=== PATIENT | female | born 1960 | race Caucasian/White ===

== ENCOUNTER 2020-05-23 15:55 | Emergency (ER) | payer MEDICARE, OTHER ==
[~2020-05-23] VITALS: Ht 175 cm; Wt 91.0 kg
[2020-05-23 15:59] VITALS: BP 150/93
--- NOTE | 2020-05-23 16:22 | ED Upper Extremity ---
General Chief Complaint: Upper Extremity Stated Complaint: R HAND FINGER INJ / SWELLING Nursing Triage Note: PT STATES SMASHED 2,3 FINGERS ON L HAND IN CAR DOOR APPROX 15MIN AGO Nursing Sepsis Screen: No Definite Risk Source: patient Exam Limitations: no limitations History of Present Illness Date Seen by Provider: May 23, 2020 Time Seen by Provider: 16:17 Initial Comments Reports of right pointer and middle finger pain after it was shut in a car door. Her daughter is being seen for hand laceration. Patient states she thought perhaps she could get a shot of aspirin in the arm. Onset: just prior to arrival Severity: moderate Pain/Injury Location: right 2nd finger, right 3rd finger Method of Injury: unknown Modifying Factors: Improves With Movement Allergies and Home Medications Allergies Coded Allergies: No Known Drug Allergies (Unverified , 05/23/20) Patient Home Medication List Home Medication List Reviewed: Yes Review of Systems Constitutional: see HPI EENTM: see HPI Respiratory: no symptoms reported Cardiovascular: no symptoms reported Genitourinary: no symptoms reported Musculoskeletal: see HPI Skin: no symptoms reported Psychiatric/Neurological: No Symptoms Reported Past Trekdwn-[id number]-[id number] Hx Patient Social History Alcohol Use: Denies Use Smoking Status: Current Everyday Smoker Type Used: Cigarettes Recent Infectious Disease Expo: No Recent Hopitalizations: No Immunizations Up To Date Tetanus Booster (TDap): Unknown Seasonal Allergies Seasonal Allergies: No Past Medical History Respiratory: No Cardiac: No Neurological: No : No Genitourinary: No Gastrointestinal: No Musculoskeletal: No Endocrine: No HEENT: No Cancer: No Psychosocial: No Integumentary: No Blood Disorders: No Physical Exam Vital Signs Vital Signs - First Documented 05/23/20 15:59 Temp 37.3 Pulse 91 Resp 20 B/P (MAP) 150/93 (112) Pulse Ox 95 Capillary Refill : Less Than 3 Seconds Height, Weight, BMI Height: '" Weight: lbs. oz. kg; 29.00 BMI Method: General Appearance: WD/WN, no apparent distress Neck: non-tender, full range of motion Respiratory: no respiratory distress, no accessory muscle use Elbow/Forearm: normal inspection, non-tender Wrist: Yes normal inspection, Yes non-tender Hand: normal inspection, soft tissue tenderness (Pointer and middle finger are normal in appearance) Neurologic/Tendon: normal sensation, normal motor functions Neurologic/Psychiatric: alert, normal mood/affect, oriented x 3 Skin: normal color, warm/dry Progress/Results/Core Measures Results/Orders My Orders Orders - EUSEBIA MÉNDEZ APRN Hand, Right, 3 Views (05/23/20 16:17) Ibuprofen Tablet (Motrin Tablet) (05/23/20 16:30) Vital Signs/I&O 05/23/20 15:59 Temp 37.3 Pulse 91 Resp 20 B/P (MAP) 150/93 (112) Pulse Ox 95 Blood Pressure Mean: 112 Departure Impression Primary Impression: Finger contusion Disposition: 01 HOME, SELF-CARE Condition: Stable Departure-Patient Inst. Decision time for Depature: 16:20 Patient Instructions: NO INSTRUCTIONS GIVEN Add. Discharge Instructions: All discharge instructions reviewed with patient and/or family. Voiced understanding. EUSEBIA MÉNDEZ APRN May 23, 2020 16:22
[2020-05-23] MEDS ORDERED: IBUPROFEN 800 MG (MOTRIN) TAB PO ONE (16:30)
--- NOTE | 2020-05-23 16:41 | Diagnostic Imaging Report ---
EXAMINATION: Right hand radiographs, 3 views. COMPARISON: None. HISTORY: 59-year-old female, right distal second and third digits slammed in car door. FINDINGS: There is severe osteoarthritis of the first carpometacarpal joint. There is no identified acute fracture. There is no identified subluxation or dislocation. There is no radiopaque foreign body. The additional joint spaces are well preserved. IMPRESSION: 1. No acute bony abnormality of the right hand. 2. Severe osteoarthritis of the first carpometacarpal joint. Dictated by: Dictated on workstation # [id number]
== END 2020-05-23 16:45 | disposition home or self-care (01) ==
LOC: ER 15:58
DX: S60.031A Contusion of right middle finger without damage to nail, initial encounter (principal); S60.021A Contusion of right index finger without damage to nail, initial encounter; F17.210 Nicotine dependence, cigarettes, uncomplicated; W23.0XXA Caught, crushed, jammed, or pinched between moving objects, initial encounter
CPT/HCPCS: 73130